=== PATIENT | female | born 1965 | race African-American/Black ===

== ENCOUNTER 2022-06-06 19:33 | Emergency (ER) | payer BC ==
[~2022-06-06] VITALS: Ht 154.9 cm; Wt 52.2 kg
[2022-06-06] MEDS ORDERED: FAMOTIDINE 20 MG TABLET PO ONE (20:45)
[2022-06-06 20:46] LABS: HEMATOCRIT 39.2 % (31.2-41.9); MEAN CORPUSCULAR HEMOGLOBIN 31.4 uug (24.7-32.8); MEAN CORPUSCULAR VOLUME 93.5 fL (75.5-95.3); PLATELET COUNT (AUTO) 274 K/uL (179-408)
[2022-06-06] MEDS ORDERED: MECLIZINE HCL 25 MG TABLET PO ONE (21:00)
[2022-06-06 21:20] LABS: CARBON DIOXIDE 30 mmol/L (21-32); CHLORIDE 101 mmol/L (98-107); CREATININE 0.8 mg/dL (0.6-1.3); GLUCOSE 117 mg/dL (74-106); POTASSIUM 3.7 mmol/L (3.5-5.1); UREA NITROGEN, BLOOD 13 mg/dL (7-18)
[2022-06-06 21:37] LABS: ALANINE AMINOTRANSFERASE 16 U/L (14-59); ALKALINE PHOSPHATASE 64 U/L (50-136); ASPARTATE AMINOTRANSFERASE 12 U/L (15-37); BILIRUBIN,DIRECT 0.1 mg/dL (0.0-0.2); BILIRUBIN,TOTAL 0.3 mg/dL (0.2-1.0); TOTAL PROTEIN, SERUM 7.6 g/dL (6.4-8.2)
[2022-06-06] MEDS ORDERED: MECL-159 PO (23:10)
[2022-06-06 23:23] VITALS: BP 125/72
== END 2022-06-06 23:17 | disposition home or self-care (01) ==
LOC: ER 19:36
DX: R07.9 Chest pain, unspecified (principal); R42 Dizziness and giddiness; R79.1 Abnormal coagulation profile; Z88.1 Allergy status to other antibiotic agents; Z88.0 Allergy status to penicillin
CPT/HCPCS: 36415; 70450; 71045; 84484; 85025; 93005; A4663; J8597